=== PATIENT | female | born 1995 | race Caucasian/White ===

== ENCOUNTER 2018-02-03 04:43 | Emergency (ER) | payer OTHER ==
[~2018-02-03 04:43] MED LIST: ACET-1966 PO; BUPR-474 PO; CALC-515 PO; GOLYTE PO; HYDR100E16 RC; MESA10007 RC; MESA4ENE RC; NORG1TAB94 PO; PANT40TA65 PO; SERT-1 PO; SERT-173 PO
--- NOTE | 2018-02-03 04:45 | ER Report ---
History and Physical Time Seen By MD: 04:44 HPI/ROS CHIEF COMPLAINT: Lower abdominal pain, nausea HISTORY OF PRESENT ILLNESS: 22-year-old female presents a to the ER complaining of severe lower abdominal pain in bilateral quadrants onset approximately 1 hour prior to arrival with severe nausea. Patient notes no change in bowel habits. She states she felt ill yesterday with a dull headache and some diffuse bodyaches. She's had no fevers. She's had no dysuria. Last menstrual period was one week ago. She denies history of previous abdominal surgeries. 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 He was on cortisone enemas. Patient's symptoms have resolved in that regard. REVIEW OF SYSTEMS: Respiratory: No cough, no dyspnea. Cardiovascular: No chest pain, no palpitations. Gastrointestinal: As above Musculoskeletal: No back pain. Allergies: Coded Allergies: Penicillins (Verified Allergy, Intermediate, RASH, 02/03/18) Home Meds Active Scripts Oxycodone Hcl/Acetaminophen (PERCOCET 5-325 MG TABLET) 1 Each Tablet, 1 EACH PO Q4-6H Y for PAIN, #12 Prov:GIO SCHREIBER DO 02/03/18 Ondansetron (ZOFRAN ODT) 4 Mg Tab.rapdis, 4 MG PO every 6 hours Y for NAUSEA/ VOMITING, #10 TAB TAKE 1 TABLET BY MOUTH EVERY 12 HOURS Prov:GIO SCHREIBER DO 02/03/18 Reported Medications Bupropion Hcl (WELLBUTRIN XL) 300 Mg Tab.er.24h, 300 MG PO QDAY, TAB 09/02/17 Pantoprazole Sodium (PANTOPRAZOLE SODIUM) 40 Mg Tablet.dr, 40 MG PO DAILY Y for INDIGESTION, TAB.SR 09/02/17 Sertraline Hcl (ZOLOFT) 100 Mg Tablet, 100 MG PO QDAY, TAB 03/18/16 Discontinued Reported Medications Acetaminophen (TYLENOL) 325 Mg Tablet, 325 MG PO PRN, TAB 09/02/17 Calcium Carbonate (TUMS) 200 Mg Tab.chew, 1-2 TAB PO PRN, TAB.CHEW 03/18/16 Discontinued Scripts Mesalamine (Rowasa) 4 Gram/60 Ml Enema, 4 G RC QHS, #30 BOTTLE 1 Refill Prov:JAMES LYNN MD 11/17/17 Mesalamine (CANASA) 1,000 Mg Supp.rect, 1 MG RC BID, #60 SUPP.RECT 3 Refills Prov:JAMES LYNN MD 11/09/17 Hydrocortisone (CORTENEMA) 100 Mg/60 Ml Enema, 1 BOTTLE RC QHS, #30 BOTTLE 0 Refills Prov:JAMES LYNN MD 10/09/17 Reviewed Nurses Notes: Yes Old Medical Records Reviewed: Yes Hx Smoking: No Smoking Status: Never Smoker Exposure to Second Hand Smoke?: Yes (OCCASIONALLY) Hx Alcohol Use: Yes Constitutional Vital Sign - Last 24 Hours 02/03/18 02/03/18 02/03/18 02/03/18 04:47 04:53 04:58 05:13 Temp 97.7 Pulse 68 76 75 Resp 12 B/P (MAP) 112/75 112/75 (87) Pulse Ox 97 97 93 O2 Delivery Room Air 02/03/18 02/03/18 02/03/18 02/03/18 05:28 05:40 05:48 06:00 Pulse 69 77 B/P (MAP) 106/74 (85) 106/71 (83) Pulse Ox 99 89 Physical Exam General Appearance: The patient is alert, has no immediate need for airway protection and no current signs of toxicity. Vital signs stable, afebrile, pulse ox normal, moderate distress Eyes: Pupils equal and round no injection. Respiratory: Chest is non tender, lungs are clear to auscultation. Cardiac: regular rate and rhythm Gastrointestinal: Abdomen is soft. Mild bilateral lower quadrant tenderness, no masses, bowel sounds normal. Musculoskeletal: Neck: Neck is supple and non tender. Extremities have full range of motion and are non tender. Skin: No rashes or lesions. DIFFERENTIAL DIAGNOSIS: After history and physical exam differential diagnosis was considered for abdominal pain including but not limited to appendicitis, cholecystitis, gastritis and urinary tract infection. Additionally,abdominal pain in a female including but not limited to ovarian cyst, pelvic inflammatory disease, ovarian torsion, urinary tract infection, inflammatory bowel disease and appendicitis. Medical Decision Making Data Points Result Diagram: 02/03/18 0510 02/03/18 0510 Laboratory Hematology Test 02/03/18 04:50 02/03/18 05:10 Urine Color Yellow Urine Clarity Clear Urine pH 6.0 pH (4.8-9.5) Urine Specific [place] 1.009 Urine Protein Negative mg/dL (NEGATIVE) Urine Glucose (UA) Negative mg/dL (NEGATIVE) Urine Ketones Negative mg/dL (NEGATIVE) Urine Blood Small (NEGATIVE) Urine Nitrite Negative (NEGATIVE) Urine Bilirubin Negative (NEGATIVE) Urine Urobilinogen Negative mg/dL (0.2-1.9) Urine Leukocyte Esterase Negative (NEGATIVE) Urine RBC <1 /HPF (0-2/HPF) Urine WBC 2 /HPF (0-5/HPF) Urine Squamous Epithelial Cells None /LPF (</=FEW) Urine Bacteria Few /HPF (NONE-FEW) Urine Hyaline Casts Few /LPF (NONE-FEW) Urine Mucus Few /HPF (NONE-FEW) Red Blood Count 4.83 M/uL (4.17-5.56) Mean Corpuscular Volume 92.3 fL (80.0-96.0) Mean Corpuscular Hemoglobin 32.0 pg (26.0-33.0) Mean Corpuscular Hemoglobin Concent 34.7 g/dL (32.0-36.0) Red Cell Distribution Width 12.9 % (11.5-14.5) Mean Platelet Volume 10.3 fL (7.2-11.1) Neutrophils (%) (Auto) 53.3 % (39.4-72.5) Lymphocytes (%) (Auto) 38.2 % (17.6-49.6) Monocytes (%) (Auto) 6.3 % (4.1-12.4) Eosinophils (%) (Auto) 1.4 % (0.4-6.7) Basophils (%) (Auto) 0.8 % (0.3-1.4) Nucleated RBC Relative Count (auto) 0.1 /100WBC Neutrophils # (Auto) 3.4 K/uL (2.0-7.4) Lymphocytes # (Auto) 2.4 K/uL (1.3-3.6) Monocytes # (Auto) 0.4 K/uL (0.3-1.0) Eosinophils # (Auto) 0.1 K/uL (0.0-0.5) Basophils # (Auto) 0.1 K/uL (0.0-0.1) Nucleated RBC Absolute Count (auto) 0.00 K/uL Prothrombin Time 14.7 seconds (12.0-14.4) Prothromb Time International Ratio 1.14 Activated Partial Thromboplast Time 27 seconds (23-35) Sodium Level 139 mmol/L (137-145) Potassium Level 3.9 mmol/L (3.5-5.0) Chloride Level 102 mmol/L (98-107) Carbon Dioxide Level 23 mmol/L (22-31) Blood Urea Nitrogen 11 mg/dl (7-18) Creatinine 0.80 mg/dl (0.52-1.04) Glomerular Filtration Rate Calc > 60.0 Random Glucose 88 mg/dl (75-110) Calcium Level 10.0 mg/dl (8.4-10.2) Total Bilirubin 0.4 mg/dl (0.2-1.3) Aspartate Amino Transf (AST/SGOT) 23 U/L (0-35) Alanine Aminotransferase (ALT/SGPT) 16 U/L (0-56) Alkaline Phosphatase 66 U/L (0-126) C-Reactive Protein < 0.5 mg/dl (<1.0) Total Protein 7.4 gm/dl (6.3-8.2) Albumin 4.4 g/dl (3.5-5.0) Amylase Level 81 U/L (0-110) Lipase 59 U/L (23-300) Human Chorionic Gonadotropin, Qual Negative (NEGATIVE) Chemistry Test 02/03/18 04:50 02/03/18 05:10 Urine Color Yellow Urine Clarity Clear Urine pH 6.0 pH (4.8-9.5) Urine Specific [place] 1.009 Urine Protein Negative mg/dL (NEGATIVE) Urine Glucose (UA) Negative mg/dL (NEGATIVE) Urine Ketones Negative mg/dL (NEGATIVE) Urine Blood Small (NEGATIVE) Urine Nitrite Negative (NEGATIVE) Urine Bilirubin Negative (NEGATIVE) Urine Urobilinogen Negative mg/dL (0.2-1.9) Urine Leukocyte Esterase Negative (NEGATIVE) Urine RBC <1 /HPF (0-2/HPF) Urine WBC 2 /HPF (0-5/HPF) Urine Squamous Epithelial Cells None /LPF (</=FEW) Urine Bacteria Few /HPF (NONE-FEW) Urine Hyaline Casts Few /LPF (NONE-FEW) Urine Mucus Few /HPF (NONE-FEW) White Blood Count 6.4 k/uL (4.5-11.0) Red Blood Count 4.83 M/uL (4.17-5.56) Hemoglobin 15.5 g/dL (12.0-16.0) Hematocrit 44.6 % (34.0-47.0) Mean Corpuscular Volume 92.3 fL (80.0-96.0) Mean Corpuscular Hemoglobin 32.0 pg (26.0-33.0) Mean Corpuscular Hemoglobin Concent 34.7 g/dL (32.0-36.0) Red Cell Distribution Width 12.9 % (11.5-14.5) Platelet Count 193 K/uL (150-450) Mean Platelet Volume 10.3 fL (7.2-11.1) Neutrophils (%) (Auto) 53.3 % (39.4-72.5) Lymphocytes (%) (Auto) 38.2 % (17.6-49.6) Monocytes (%) (Auto) 6.3 % (4.1-12.4) Eosinophils (%) (Auto) 1.4 % (0.4-6.7) Basophils (%) (Auto) 0.8 % (0.3-1.4) Nucleated RBC Relative Count (auto) 0.1 /100WBC Neutrophils # (Auto) 3.4 K/uL (2.0-7.4) Lymphocytes # (Auto) 2.4 K/uL (1.3-3.6) Monocytes # (Auto) 0.4 K/uL (0.3-1.0) Eosinophils # (Auto) 0.1 K/uL (0.0-0.5) Basophils # (Auto) 0.1 K/uL (0.0-0.1) Nucleated RBC Absolute Count (auto) 0.00 K/uL Prothrombin Time 14.7 seconds (12.0-14.4) Prothromb Time International Ratio 1.14 Activated Partial Thromboplast Time 27 seconds (23-35) Glomerular Filtration Rate Calc > 60.0 Calcium Level 10.0 mg/dl (8.4-10.2) Total Bilirubin 0.4 mg/dl (0.2-1.3) Aspartate Amino Transf (AST/SGOT) 23 U/L (0-35) Alanine Aminotransferase (ALT/SGPT) 16 U/L (0-56) Alkaline Phosphatase 66 U/L (0-126) C-Reactive Protein < 0.5 mg/dl (<1.0) Total Protein 7.4 gm/dl (6.3-8.2) Albumin 4.4 g/dl (3.5-5.0) Amylase Level 81 U/L (0-110) Lipase 59 U/L (23-300) Human Chorionic Gonadotropin, Qual Negative (NEGATIVE) Coagulation Test 02/03/18 05:10 Prothrombin Time 14.7 seconds Prothromb Time International Ratio 1.14 Activated Partial Thromboplast Time 27 seconds Urinalysis Test 02/03/18 04:50 Urine Color Yellow Urine Clarity Clear Urine pH 6.0 pH (4.8-9.5) Urine Specific [place] 1.009 Urine Protein Negative mg/dL (NEGATIVE) Urine Glucose (UA) Negative mg/dL (NEGATIVE) Urine Ketones Negative mg/dL (NEGATIVE) Urine Blood Small (NEGATIVE) Urine Nitrite Negative (NEGATIVE) Urine Bilirubin Negative (NEGATIVE) Urine Urobilinogen Negative mg/dL (0.2-1.9) Urine Leukocyte Esterase Negative (NEGATIVE) Urine RBC <1 /HPF (0-2/HPF) Urine WBC 2 /HPF (0-5/HPF) Urine Squamous Epithelial Cells None /LPF (</=FEW) Urine Bacteria Few /HPF (NONE-FEW) Urine Hyaline Casts Few /LPF (NONE-FEW) Urine Mucus Few /HPF (NONE-FEW) ED Course/Re-evaluation Clinical Indication for ER IV: Hydration, IV Access ED Course Patient admitted to an examination room. An H&P was done The differential diagnoses was considered. On clinical examination. Patient has a benign nonsurgical abdomen. She does have significant pain. She is treated with Zofran and morphine for motor grams IV. Diagnostic laboratory studies are sent off. The diagnostic laboratory studies return. Unremarkable. On reevaluation. Patient's abdomen is benign and unremarkable. On repeat examination. Patient's advised to conservative treatment plan of clear liquid diets and bowel rest. She'll be given a limited supply of Zofran and Percocet for temporary symptom relief. If she has continued symptoms. She is advised to follow-up with primary care or Dr. Lynn Decision to Disposition Date: February 03, 2018 Decision to Disposition Time: 06:00 Depart Departure Latest Vital Signs Vital Signs Date Time Temp Pulse Resp B/P (MAP) Pulse Ox O2 Delivery O2 Flow Rate FiO2 02/03/18 06:00 106/71 (83) 02/03/18 05:48 77 89 02/03/18 04:47 97.7 12 Room Air Impression: Primary Impression: Lower abdominal pain of unknown etiology Condition: Improved Disposition: HOME OR SELF-CARE Referrals: JOHNNA DUTTON MD (PCP) New Scripts Oxycodone Hcl/Acetaminophen (PERCOCET 5-325 MG TABLET) 1 Each Tablet 1 EACH PO Q4-6H Y for PAIN, #12 Prov: GIO SCHREIBER DO 02/03/18 Ondansetron (ZOFRAN ODT) 4 Mg Tab.rapdis 4 MG PO every 6 hours Y for NAUSEA/VOMITING, #10 TAB TAKE 1 TABLET BY MOUTH EVERY 12 HOURS Prov: GIO SCHREIBER DO 02/03/18 Patient Instructions: Abdominal Pain (ED), Clear Liquid Diet (ED) Additional Instructions: Follow clear liquid diet for 24-48 hours, then advance to [place] diet, bananas, rice, applesauce and toast Use Tylenol or ibuprofen as needed for pain relief Follow-up with your primary care or Dr. Johsnon if unimproved in 3-5 days GIO SCHREIBER DO February 03, 2018 04:45
[2018-02-03] MEDS ORDERED: NS(*) 0.9% 1000 ML BAG 1,000 ML IV ONE (04:56)
[2018-02-03] MEDS ORDERED: MORPHINE 4 MG/ML SDV IVP ONE (05:00)
[2018-02-03] MEDS ORDERED: ONDANSETRON 4 MG/2 ML VIAL IVP ONE (05:00)
[2018-02-03 05:38] LABS: INR 1.14
[2018-02-03 05:41] LABS: PLATELET COUNT, AUTOMATED 193 K/uL (150-450)
[2018-02-03 06:00] VITALS: BP 106/71
[2018-02-03] MEDS ORDERED: ONDA4TAB PO (06:02)
[2018-02-03] MEDS ORDERED: OXYC-865 PO (06:02)
[2018-02-03] MEDS ORDERED: oxyCODONE/ACETAMIN 5/325MG TH 2 TAB/BOTTLE PO ONE (06:05)
[2018-02-03] MEDS ORDERED: ONDANSETRON 4 MG ODT TH SL ONE (06:05)
== END 2018-02-03 06:14 | disposition home or self-care (01) ==
LOC: ER 04:56
DX: R10.32 Left lower quadrant pain (principal); R10.31 Right lower quadrant pain
CPT/HCPCS: 81001; 82150; 83690; 84703; 85025; 85610; 85651; 85730; 86140; 96361; 96374; 96375; 99283; J2270; J2405; J7030; S0119; 82040; 82247; 82310; 82374; 82435; 82565; 82947; 84075; 84132; 84155; 84295; 84450; 84460; 84520

== ENCOUNTER → 2018-02-19 | Outpatient (CLI) | payer OTHER ==
[~2018-02-19] MED LIST changes: +MESA4ENE PR; +ONDA4TAB PO; +OXYC-865 PO; +POLY17PO25 PO
[2018-02-19 09:08] LABS: PLATELET COUNT, AUTOMATED 191 K/uL (150-450)
== END ==
LOC: LAB 08:45
PROVIDERS: ATTEND Internal Medicine
DX: R10.9 Unspecified abdominal pain (principal); Z87.19 Personal history of other diseases of the digestive system; R10.30 Lower abdominal pain, unspecified
CPT/HCPCS: 36415; 81001; 82040; 82247; 82274; 82310; 82374; 82435; 82565; 82947; 83630; 84075; 84132; 84155; 84295; 84443; 84450; 84460; 84520; 85025; 87045; 87205; 87324; 87449

== ENCOUNTER → 2018-02-26 | Outpatient (CLI) | payer OTHER ==
[~2018-02-26] MED LIST changes: +LEVO1IUD2 IY
== END ==
LOC: LAB 11:10
PROVIDERS: ATTEND Obstetrics & Gynecology
DX: R53.83 Other fatigue (principal)
CPT/HCPCS: 36415; 84439; 84443; 84481

== ENCOUNTER → 2018-03-08 | Outpatient (CLI) | payer OTHER ==
[~2018-03-08] MED LIST changes: +IOPAMIDOL 76% 75 ML INFUS BTL 75 ML ONE
--- NOTE | 2018-03-08 09:59 | RADIOLOGY IMAGING REPORT ---
FACILITY: [facility] - [place] PATIENT NAME: Rea Castillo : 1995 MR: [id number] V: [id number] EXAM DATE: ORDERING PHYSICIAN: JOSEFA DODSON TECHNOLOGIST: Location: [facility] [place] Patient: Rea Castillo : 1995 Visit/Account:[id number] Date of Sevice: 03/08/2018 ABDOMEN/PELVIS W/WO CONTRAST HISTORY: colitis, abdominal pain TECHNIQUE: Axial images acquired through the abdomen/pelvis both with and without IV contrast.. Ralf nal and sagittal reformatting also performed. Dose Lowering Technique One of the following dose optimization techniques was utilized in the performance of this exam: Autom ated exposure control; adjustment of the mA and/or kV according to the patient's size; or use of an i terative reconstruction technique. Specific details can be referenced in the facility's radiology C T exam operational policy. CONTRAST: 75 mL [id number] COMPARISON: None. FINDINGS: Visualized lung bases: There are subtle reticular nodular changes in the posterior medial right lowe r lobe which may represent an infectious/ inflammatory process versus scarring Hepatobiliary: Negative. Spleen: Accessory splenule Adrenals: Negative. Pancreas: Negative. Kidneys ureters and bladder: Negative. Genitalia: Retroverted uterus containing an IUD. There is a heterogeneous enhancement pattern to th e myometrium. There are several right ovarian cysts. The dominant septated cyst measures approximat neal 2.1 cm in diameter GI: There is a moderate amount of fecal material seen throughout colon which can be seen with consti pation. Vessels/spaces/nodes: There are multiple small shotty mesenteric lymph nodes Bones/soft tissues: Negative. Additional findings: None pertinent. IMPRESSION: Subtle reticular nodular changes in the posterior medial right lower lobe which may represent scarrin g versus an acute infectious/inflammatory process Retroverted uterus containing an IUD. There is a heterogeneous enhancement pattern to the myometrium . This may simply be related to the timing of contrast injection however if uterine pathology is of clinical concern a pelvic ultrasound is recommended Dominant septated cyst in the right ovary measures 2.1 cm in diameter. Moderate amount of fecal material in the colon which can be seen with constipation Multiple small shotty mesenteric lymph nodes Report Dictated By: Prudence Riggins MD at 03/08/2018 9:45 AM Report E-Signed By: Prudence Riggins MD at 03/08/2018 9:56 AM WSN:CHANO
== END ==
LOC: CT 02:43
PROVIDERS: ATTEND Internal Medicine
DX: K59.00 Constipation, unspecified (principal); R91.8 Other nonspecific abnormal finding of lung field; Z97.5 Presence of (intrauterine) contraceptive device; R59.0 Localized enlarged lymph nodes; N83.201 Unspecified ovarian cyst, right side
CPT/HCPCS: 74178; Q9967